=== PATIENT | female | born 1955 | race Caucasian/White ===

== ENCOUNTER 2020-10-03 18:09 | Emergency (ER) | payer MEDICARE, OTHER ==
[~2020-10-03 18:09] MED LIST: ACYCLOVIR400 MG PO; ALLERGY RELIE15.8 ML; BACLOFEN10 MG PO; CLARITIN10 MG PO; COUMADIN2 MG PO; COUMADIN5 MG PO; DICLOFENAC SOD100 G1 TOP; LISINOPRIL-HCT1 EAC2 PO; MAGNESIUM OXID400 MG PO; METOPROLOL SUC100 MG PO; NORCO 5-325 TA1 EACH PO; PANTOPRAZOLE SO40 MG PO; VICODIN 10/3251 EACH PO
[2020-10-03 19:41] LABS: BASOPHIL 0.9 % (0-2); EOSINOPHIL 3.9 % (0-7); HCT 42.6 % (37.0-47.0); HGB 13.8 g/dl (12.5-16.0); LYMPHOCYTE 23.7 % (15-48); MCH 28.6 pg (25.0-31.0); MCHC 32.4 g/dL (32.0-36.0); MCV 88.2 fL (78.0-100.0); MONOCYTE 9.8 % (0-12); NEUTROPHIL 61.3 % (41-80); NRBC 0; PLT 229 K/uL (150-400); RBC 4.83 M/uL (4.20-5.40); RDW 13.3 % (11.5-14.0); WBC 12.5 K/uL (4.0-10.5)
[2020-10-03 20:06] LABS: LACTIC ACID 1.4 mmol/L (0.4-1.9)
[2020-10-03 20:08] LABS: ALBUMIN 3.5 g/dL (3.4-5.0); BILIRUBIN - TOTAL 0.5 mg/dL (0.2-1.0); BUN/CREAT RATIO (CALC) 17.9 RATIO; CREATININE 0.84 mg/dL (0.51-0.95); GLOBULIN (CALCULATION) 4.3 g/dL; POTASSIUM 3.4 mmol/L (3.5-5.1); TOTAL PROTEIN 7.8 g/dL (6.4-8.2)
[2020-10-03 20:17] LABS: BILIRUBIN 1+ mg/dL (NEGATIVE); BLOOD NEGATIVE Ery/uL (NEGATIVE); CLARITY HAZY (CLEAR); COLOR YELLOW (YELLOW); GLUCOSE (U) NORMAL (NORMAL); LEUKOCYTES NEGATIVE Leu/uL (NEGATIVE); NITRITE NEGATIVE (NEGATIVE); PROTEIN NEGATIVE (NEGATIVE); SPECIFIC GRAVITY >=1.030 (1.001-1.030); UROBILINOGEN 0.2 mg/dL (0.2-1.0); pH 5.5 (5.0-9.0)
[2020-10-03] MEDS ORDERED: AUGMENTIN 875-1 EACH PO ×2 (21:48→22:03)
[2020-10-03] MEDS ORDERED: ZOFRAN4 M1 PO ×2 (21:48→22:03)
== END 2020-10-03 22:15 | disposition home or self-care (01) ==
LOC: FER 18:09
PROVIDERS: Nurse Practitioner Family
DX: K57.32 Diverticulitis of large intestine without perforation or abscess without bleeding (principal); K76.0 Fatty (change of) liver, not elsewhere classified; M54.5 Low back pain; I10 Essential (primary) hypertension; Z86.73 Personal history of transient ischemic attack (TIA), and cerebral infarction without residual deficits; Z87.19 Personal history of other diseases of the digestive system; Z87.442 Personal history of urinary calculi
CPT/HCPCS: 36415; 80053; 81003; 82150; 83605; 83690; 84145; 85025; J2270; J2405; J7030; Q9967

== ENCOUNTER 2021-02-01 14:41 | Emergency (ER) | payer MEDICARE, OTHER ==
[~2021-02-01 14:41] MED LIST changes: +AUGMENTIN 875-1 EACH PO; +ZOFRAN4 M1 PO
[2021-02-01 16:14] LABS: BASOPHIL 1.3 % (0-2); EOSINOPHIL 3.8 % (0-7); HCT 39.2 % (37.0-47.0); HGB 13.1 g/dl (12.5-16.0); LYMPHOCYTE 33.6 % (15-48); MCH 28.9 pg (25.0-31.0); MCHC 33.4 g/dL (32.0-36.0); MCV 86.5 fL (78.0-100.0); MONOCYTE 16.8 % (0-12); MPV 11.8 fL (6.0-9.5); NEUTROPHIL 43.7 % (41-80); NRBC 0; PLT 210 K/uL (150-400); RBC 4.53 M/uL (4.20-5.40); RDW 13.7 % (11.5-14.0)
[2021-02-01 16:28] LABS: BUN/CREAT RATIO (CALC) 16.5 RATIO; CREATININE 0.91 mg/dL (0.51-0.95); POTASSIUM 3.4 mmol/L (3.5-5.1)
[2021-02-01] MEDS ORDERED: ZPAK PO (19:15)
== END 2021-02-01 19:40 | disposition home or self-care (01) ==
LOC: FER 14:41
PROVIDERS: Nurse Practitioner Family
DX: U07.1 COVID-19 (principal); J12.82 Pneumonia due to coronavirus disease 2019; I10 Essential (primary) hypertension
CPT/HCPCS: 36415; 71045; 80048; 84484; 85025; 87880; 93005; M0245; U0002